=== PATIENT | male | born 1960 | race American Indian/Alaskan Native ===

== ENCOUNTER 2017-09-29 17:47 | Emergency (ER) | payer OTHER ==
--- NOTE | 2017-09-29 21:16 | Emergency Department Report ---
ED Abdominal Pain HPI - General Chief Complaint: Abdominal Pain Stated Complaint: ABDOMINAL PAIN Time Seen by Provider: 09/29/17 21:04 Source: patient, old records reviewed Mode of arrival: Ambulatory Limitations: No Limitations - History of Present Illness Initial Comments: Mr Baltazar is a 57 year-old man with hx of diet controlled DM who presents with abdominal pain and constipation. Has not had a bowel movement in over one week. Was seen here earlier in the ED and discharged with diagnosis of constipation and told to try OTC enema. He attempted this but it did not work, only fluid came back out. is was concerned that he felt a hemorrhoid. No blood in stool. No vomiting. No fevers. No other complaints. MD Complaint: abdominal pain, other (constipation) -: Gradual Migration to: no migration Severity: moderate Improves With: nothing Worsens With: nothing Associated Symptoms: constipation Treatments Prior to Arrival: other (enema) - Related Data Previous Rx's Medication Instructions Recorded Last Taken Type Insulin Glargine,Hum.rec.anlog 20 units SQ QHS 30 Days pen 03/29/15 Unknown Rx [Lantus Solostar] Insulin Glulisine [Apidra Solostar] 3 unit SQ AC 30 Days ml 03/29/15 Unknown Rx Lisinopril [Zestril TAB] 10 mg PO QDAY #30 tablet 03/29/15 Unknown Rx Ketorolac [Toradol] 10 mg PO Q6H PRN #20 tablet 05/31/15 Unknown Rx Methocarbamol [Robaxin TAB] 1,500 mg PO TID PRN #30 tab 05/31/15 Unknown Rx Dicyclomine [Bentyl] 20 mg PO QID #10 tablet 09/29/17 Unknown Rx Docusate Sodium [Colace] 100 mg PO BID #30 capsule 09/29/17 Unknown Rx Polyethylene Glycol 3350 [Miralax 17 gm PO BID #10 packet 09/29/17 Unknown Rx 3350] Allergies Allergy/AdvReac Type Severity Reaction Status Date / Time No Known Allergies Allergy Verified 09/29/17 17:50 ED Review of Systems ROS: Stated complaint: ABDOMINAL PAIN Other details as noted in HPI Comment: All other systems reviewed and negative ED Past Medical Hx - Past Medical History Hx Hypertension: No Hx Heart Attack/AMI: No Hx Congestive Heart Failure: No Hx Diabetes: Yes Hx Deep Vein Thrombosis: No Hx Pulmonary Embolism: No Hx GERD: Yes Hx Asthma: No Hx COPD: No Hx Tuberculosis: No Hx HIV: No Additional medical history: Spontaneous pneumothorax. VARICOSE VEINS - Surgical History Hx Coronary Stent: No Hx Open Heart Surgery: No Hx Pacemaker: No Hx Internal Defibrillator: No Hx Cholecystectomy: No Hx Appendectomy: No Hx Breast Surgery: No Additional Surgical History: Chest tube - Social History Smoking Status: Never Smoker Substance Use Type: None - Medications Home Medications: Home Medications Medication Instructions Recorded Confirmed Last Taken Type Insulin Glargine,Hum.rec.anlog 20 units SQ QHS 30 Days pen 03/29/15 Unknown Rx [Lantus Solostar] Insulin Glulisine [Apidra Solostar] 3 unit SQ AC 30 Days ml 03/29/15 Unknown Rx Lisinopril [Zestril TAB] 10 mg PO QDAY #30 tablet 03/29/15 Unknown Rx Ketorolac [Toradol] 10 mg PO Q6H PRN #20 tablet 05/31/15 Unknown Rx Methocarbamol [Robaxin TAB] 1,500 mg PO TID PRN #30 tab 05/31/15 Unknown Rx Dicyclomine [Bentyl] 20 mg PO QID #10 tablet 09/29/17 Unknown Rx Docusate Sodium [Colace] 100 mg PO BID #30 capsule 09/29/17 Unknown Rx Polyethylene Glycol 3350 [Miralax 17 gm PO BID #10 packet 09/29/17 Unknown Rx 3350] ED Physical Exam - General Limitations: No Limitations General appearance: alert, in no apparent distress - Head Head exam: Present: atraumatic, normocephalic - ENT ENT exam: Present: mucous membranes moist - GI/Abdominal GI/Abdominal exam: Present: soft, tenderness (mild LLQ ttp). Absent: distended , guarding, rebound - Rectal Rectal exam: Present: normal inspection, normal rectal tone, fecal impaction. Absent: hemorrhoids, mass ED Course Vital Signs 09/29/17 17:50 Temperature 97.9 F Pulse Rate 76 Respiratory 22 Rate Blood Pressure 107/74 O2 Sat by Pulse 100 Oximetry ED Medical Decision Making - Medical Decision Making Ms Baltazar is a 57 year-old man who presents with constipation. Was seen here earlier today. had KUB and sent home with fleets enema. Reports that he only got liquid back out. Remains with abdominal pain and constipation. Exam benign, mild abdominal ttp, no rebound and with impacted stool. Able to pull out a small amount of babs-consistency stool. Ordering fleets enema. No gross blood on exam. No home meds. Not opioid related constipation. Unsuccessful fleets enema. Given PO lactulose and soap suds enema. Successful spontaneous bowel movement. Feels well. Dc to home with stool softener prn. Critical care attestation.: If time is entered above; I have spent that time in minutes in the direct care of this critically ill patient, excluding procedure time. ED Disposition Clinical Impression: Constipation Qualifiers: Constipation type: unspecified constipation type Qualified Code(s): K59.00 - Constipation, unspecified Disposition: DC-01 TO HOME OR SELFCARE Is pt being admited?: No Does the pt Need Aspirin: No Condition: Stable Instructions: Constipation (ED) Referrals: PRIMARY CARE, [Primary Care Provider] - 3-5 Days
[2017-09-29] MEDS ORDERED: FLEET MINERAL OIL PR ONE (21:23)
[2017-09-29] MEDS ORDERED: CEPHULAC PO ONE (22:25)
[2017-09-29 23:32] VITALS: BP 118/76
== END 2017-09-29 23:27 | disposition home or self-care (01) ==
LOC: ED 17:47
DX: K59.00 Constipation, unspecified (principal); E11.9 Type 2 diabetes mellitus without complications; K21.9 Gastro-esophageal reflux disease without esophagitis; Z79.4 Long term (current) use of insulin
CPT/HCPCS: 99283